=== PATIENT | male | born 1950 | race Caucasian/White ===

== ENCOUNTER → 2019-10-04 09:41 | Outpatient (CLI) | payer BC, SELFPAY ==
--- NOTE | ~2019-10-04 | XR_ITS ---
EXAMINATION: XR foot LT min 3V DATE: 10/04/2019 10:49 INDICATION: Left dorsal foot pain TECHNIQUE: Dorsoplantar, lateral, and 2 oblique views of the left foot were obtained. COMPARISON: None. FINDINGS: There is no fracture, dislocation, or subluxation. Bone alignment is normal. There is mild osteoarthritis at the first metatarsophalangeal joint as well as in several interphalangeal joints. T he soft tissues are unremarkable. A plantar calcaneal enthesophyte is noted. IMPRESSION: 1. No acute osseous abnormality. Reviewed, dictated and finalized at location A. ENGINEER
== END ==
PROVIDERS: PCP Family Medicine; Visit Provider Family Medicine
DX: M79.672 Pain in left foot (principal)
CPT/HCPCS: 73630

== ENCOUNTER → 2020-06-21 12:43 | Outpatient (CLI) | payer BC, SELFPAY ==
--- NOTE | ~2020-06-21 | CT_ITS ---
EXAMINATION: CT brain wo con EXAM DATE: 06/21/2020 12:59 INDICATION: Headaches.. Cataracts. TECHNIQUE: Spiral CT of the head was performed without contrast. Axial, coronal and sagittal images were reviewed. The dose-length product (DLP) for this examination was 599.57 mGy-cm. The exposure w as tailored according to patient size, and iterative reconstruction (ASIR) was used as additional dos e reduction technique. There is no prior study for comparison. FINDINGS: Mild cerebral atrophy. There is no acute intraparenchymal hemorrhage. No evidence of intra parenchymal brain mass lesion. No evidence of acute infarction. There is no mass effect or midline shift. The ventricles are normal in size. There are no extra-axial collections. There are no acute calvarial fractures. The orbits are unremarkable. Soft tissue is unremarkable. The visualized sinu ses and mastoid air cells are well aerated. IMPRESSION: 1. No acute intracranial findings. 2. Mild atrophy. Reviewed, dictated and finalized at location A. TYPIST
== END ==
PROVIDERS: PCP Family Medicine; Visit Provider Family Medicine
DX: R51.9 Headache, unspecified (principal)
CPT/HCPCS: 70450

== ENCOUNTER 2021-02-28 15:39 | Outpatient (CLI) | payer OTHER, BC, SELFPAY ==
--- NOTE | ~2021-02-28 | MR_ITS ---
EXAMINATION: MR shoulder LT wo con DATE: 02/28/2021 16:34 INDICATION: Chronic left shoulder pain. TECHNIQUE: Magnetic resonance imaging (MRI) of the left shoulder was performed without intravenous co ntrast. Sequences included axial PD-weighted FS FSE, coronal oblique PD-weighted FS FSE, coronal obli que T2-weighted FS FSE, sagittal PD-weighted FS FSE, and sagittal T1-weighted SE. COMPARISON: None. FINDINGS: Coracoacromial arch: The acromion undersurface is curved in morphology (type II) small lateral subacromial spur. The corac oacromial ligament is normal. Mild acromioclavicular osteoarthritis. Rotator cuff: Moderate supraspinatus and mild infraspinatus tendinopathy. There is a partial-thickness articular si ded tear extending 2 cm AP along the superior and anterior aspect of the middle facet footplates of t he supraspinatus and anterior infraspinatus tendon. The tear appears to vary in thickness from betwee n one third and two thirds of the tendon thickness. The teres minor tendon is normal. There is a part ial thickness articular sided tear of the subscapularis tendon which spares the bursal side of the te ndon which remains contiguous with the intact transverse humeral ligament. The tear involves at least the medial two thirds of the cephalad third of the lesser tuberosity footplate and the full width of the middle third of the footplate. The caudal third remains intact. There appear to be some ligament fibers remaining attached to the superolateral aspect of the lesser tuberosity footplate however the y appear more relaxed in the bursal sided fibers and may also be torn. No asymmetric rotator cuff mus agnes atrophy. There is mild feathery muscular edema along the myotendinous junction of the supraspinat us and more prominent the infraspinatus tendons which could be related to acute strain or intramuscul ar imbibition of fluid arising at the rotator cuff tear. Biceps tendon, glenoid labrum and glenohumeral cartilage: Full-thickness tear of the long head biceps tendon which likely occurred in the region of the junctio n of the intra-articular and extra-articular portion of the tendon. The intra-articular portion of th e tendon remains attached to its glenoid anchor and is reflected posteriorly extending approximately 2.5 cm posteriorly along the peripheral margin of the posterior superior glenoid labrum. The attenuat ed distal tear margin is retracted below level of the intertubercular groove. Normal anterosuperior s ublabral foramen. There is a tear of the anteroinferior labrum beginning anteriorly at the 3:00 posit ion and extending to the 5:00 position posterior inferiorly. Small region of deep chondral ulceration along the inferior margin of the glenoid. Less severe partial thickness cartilage loss is seen at th e apex and inferomedial margins of the humeral head. No degenerative subchondral changes. Fluid: Small glenohumeral joint effusion with proportional extension of fluid into the deep subscapular rece ss and long head biceps tendon sheath. No loose osteochondral bodies. Small amount of fluid in the walker bacromial/subdeltoid bursa as well as the subcoracoid bursa consistent with mild bursitis. Bones: Normal marrow signal with no edema, fracture or pathologic marrow replacing process. Mild cystic jimenez ge at the greater tuberosity. IMPRESSION: 1. Large partial-thickness articular sided rotator cuff tear involving the distal aspect of the supra spinatus tendon, anterior infraspinatus tendon and extending across rotator cuff interval to involve the cephalad two thirds of the distal subscapularis tendon. 2. Full-thickness along head biceps tendon tear with medial portion of the tendon reflected posterior ly from the still intact glenoid anchor. 3. Mild glenohumeral osteoarthritis with tear of the anteroinferior glenoid labrum. 4. Mild subacromial/subdeltoid and subcoracoid bursitis.
== END 2021-02-28 15:40 | disposition home or self-care (01) ==
PROVIDERS: PCP Family Medicine; Visit Provider Nurse Practitioner Family
DX: M19.012 Primary osteoarthritis, left shoulder (principal); M75.52 Bursitis of left shoulder
CPT/HCPCS: 73221

== ENCOUNTER → 2021-05-16 03:24 | Outpatient (CLI) | payer BC, SELFPAY ==
[2021-05-16 18:04] LABS: SARS-CoV-2 RNA PCR Negative
== END ==
PROVIDERS: PCP Family Medicine; Visit Provider Family Medicine
DX: Z20.822 Contact with and (suspected) exposure to COVID-19 (principal); R05.9 Cough, unspecified
CPT/HCPCS: C9803; U0003; U0005

== ENCOUNTER 2021-05-30 00:16 | Day surgery (SDC) | payer OTHER, SELFPAY ==
[2021-05-28 14:44] VITALS: BMI 25.7
[2021-05-30] VITALS (9 sets, daily range): BP systolic 107–154; BP diastolic 56–76; PULSE 63–72; RESP 12–16; TEMP 36.2–36.6; O2SAT 95–100
--- NOTE | 2021-05-30 07:25 | WPDHPUPDATE1 ---
History and Physical Update Update Date/Time: 05/30/21 07:25 History and Physical has been reviewed, including an updated exam of the patient. There are NO changes in the patient's condition. Risks, benefits, and alternatives have been discussed and questions answered. Patient agrees to proceed with procedure.
[2021-05-30] MEDS: ACETAMINOPHEN 500 MG TABLET 1000 MG PO (09:54)
[2021-05-30] MEDS: CELECOXIB 200 MG CAPSULE PO (09:54)
--- NOTE | 2021-05-30 09:55 | WPDANESEPPF ---
Anes - Initial Pre Proc Eval Procedure: Operation Date: 05/30/21 10:30 Proposed Procedures p Left Shoulder Arthroscopy, Open Rotator Cuff Repair, Subscapularis Repair, Possible Proximal Biceps Tendon Repair - Osmany Logan MD Date/Time: 05/30/21 09:55 Surgeon: Osmany Logan MD Pre Op Diagnosis: left rotator cuff tear, left biceps tendon tear Patient Data Age: 71 Gender: M Height: 1.7 m Weight: 73.9 kg Last Vital Signs Temp 97.1 F L 05/30/21 09:42 Pulse 69 05/30/21 09:42 Resp 14 05/30/21 09:42 BP 154/76 H 05/30/21 09:42 Pulse Ox 100 05/30/21 09:42 Allergies Allergy/AdvReac Type Severity Reaction Status Date / Time No Known Allergies Allergy Verified 05/30/21 09:42 Home Medications Medication Instructions Recorded Confirmed Type histamine dihydrochloride 0.025 % 0.25 % TOPICAL PRN PRN gm 09/30/19 05/30/21 History topical cream curnavcj-sfuhvcgf-apegr acid 400 1 tablet PO DAILY 05/24/20 05/30/21 History mcg-vit K 20 mcg-lycop 300 mcg tablet amitriptyline 100 mg tablet 100 mg PO HS tablet 04/18/21 05/30/21 History amlodipine 5 mg tablet 5 mg PO DAILY #90 tablet 04/18/21 05/30/21 Rx atorvastatin 20 mg tablet 20 mg PO QHS #90 tablet 05/14/21 05/30/21 Rx finasteride 5 mg PO HS 05/28/21 05/30/21 History fluticasone propionate [Flonase 2 spray NASAL PRN PRN 05/28/21 05/30/21 History Allergy Relief] naproxen sodium [Aleve] 220 mg PO Q12H PRN 05/28/21 05/30/21 History Patient hx anesthesia problems: none Family hx anesthesia problems: none Results Review: All pre-operative results and documents have been reviewed as part of the pre-operative evaluation. FOR[facility]LY [facility] Past Medical History Medical History Arthritis Bilateral shoulder pain BPH w/o urinary obs/LUTS DJD of both shoulders Dyslipidemia Elevated PSA Essential (primary) hypertension Insomnia RUBIN (obstructive sleep apnea) Rotator cuff tear Seasonal allergies Vision changes Surgical History Surgical History History of arthroscopy of right knee 02/2012 - meniscus repair History of bilateral carpal tunnel release 2010 History of left inguinal hernia repair 1970s No pertinent past surgical history S/P cubital tunnel release 2010 Family History Family History Other Cerebrovascular accident Family history of arthritis Family history of malignant neoplasm Social History Social History Smoking status: Never smoker Second hand tobacco smoke exposure: No Additional smoking assessment comments: no smoke exposure as a child Alcohol intake: never Substance use: never Substance use type: does not use Gender identity (if verbalized by the patient): Male Spiritual care concerns: No Anes - Eval Final PreProcedure Day of Procedure 05/30/21 09:55 Patient weight: normal Heart: regular rate and rhythm Lungs: clear to auscultation Airway: Mallampati scale class III Neurological: alert and oriented Last oral intake: >/= 8 hours ASA classification: III Emergent: no Anesthetic plan: proceed Anesthesia type and monitoring: general ETT and standard monitoring Results Review: All pre-operative results and documents have been reviewed as part of the pre-operative evaluation. Informed Consent: The patient's anesthetic plan and its attendant risks and benefits were discussed with the patient/family/POA. Questions were solicited and answers provided to the satisfaction of the patient/family/POA.
[2021-05-30] MEDS: LACTATED RINGERS 1,000 ML 30 ML IV CONT ×2 (10:04→13:25)
--- NOTE | 2021-05-30 10:17 | WPDANESPNB ---
Anes - Peripheral Nerve Block Date/Time: 05/30/21 10:17 I have discussed with the patient/family/POA the placement of a peripheral nerve block for post-operative pain management, including associated risks, benefits, complications, and side effects. Alternative methods of post-operative analgesia were detailed. Questions were solicited and answers provided to the satisfaction of the patient/family/POA. Time-Out: A pre-procedural Time-Out was completed immediately before starting the procedure and confirmed: Patient Identification, Site, Procedure, Patient Position and the Availability of Requisite Equipment. Clinical Indications: Acute post-operative pain management requested by the operative surgeon. Nerve Block Insertion Note Anes-nerve block: interscalene left Patient position: supine Needle: 22 gauge, stimulating, insulated echogenic needle. Needle length: 50 mm Technique: ultrasound Injectate: bupivacaine 0.5% with epi 5 mcg/ml (30cc no epi) and dexamethasone (mg) (8mg) Observations: tolerated well Complications: none Procedure start time:: 1008 Procedure end time:: 1013
[2021-05-30] MEDS: ceFAZolin 2 GM/D5W 50 ML 2 GM/50 ML BAG IVPB (10:18)
[2021-05-30] MEDS: ceFAZolin SODIUM 1 GM VIAL IV PUSH (12:39)
--- NOTE | 2021-05-30 13:44 | P.OP_ITS ---
Procedure Note - Detailed Date of Procedure 05/30/21 Pre-op Diagnosis left rotator cuff tear, left biceps tendon tear Post-op Diagnosis same Procedure Performed LEFT SHOULDER SCOPE WITH DEBRIDEMENT OF BICEPS TENDON STUMP, SYNOVECTOMY, AND OPEN ROTATOR CUFF REPAIR Surgeon Osmany Logan MD Anesthesia general Description of Procedure THE PATIENT WAS TAKEN TO THE OR, PLACED UNDER GENERAL ANESTHESIA AND THEN PLACED IN THE BEACH CHAIR POSITION. THE LEFT UPPER EXTREMITY WAS PREPPED AND DRAPED IN THE STERILE FASHION. TROCARS WERE PLACED IN THE USUAL FASHION. THE CAMERA WAS INTRODUCED. THERE WAS GRADE 2 CHONDROMALACIA TO THE GLENOID. THERE WAS NO SLAP TEAR. THERE WAS NO FULL THICKNESS TEAR OR DETACHMENT OF THE BICEPS ANCHOR. THERE WAS A LARGE CALCIFIED STUMP OF THE LONG HEAD OF THE BICEPS TENDON. THIS APPEARED TO BE A CHRONIC TEAR. THERE WAS A LOT OF TISSUE FRAYING AROUND THE LABRUM. AN ANTERIOR TROCAR WAS INTRODUCED FOLLOWED BY A SHAVER. THE LABRUM WAS DEBRIDED TO A SMOOTH BASE. THE BICEPS ANCHOR AT THE 12 O'CLOCK POSITION AND THE ANTERIOR LABRUM WERE INTACT. THERE APPEARED TO BE SOME CHRONIC DEGENERATION AND THINNING TO THE ANTERIOR LABRUM BUT NO TWAN TEAR. THE BICEPS STUMP WAS THEN DEBRIDED AND EXCISED. THE ROTATOR CUFF INSERTION WAS SEEN TO BE DISRUPTED WITH VISIBLE BURSAL TISSUE AND THERE WAS A TEAR AT THE INSERTION SITE. THERE WAS ALSO A SUSPICION OF TEAR TO THE ROTATOR CUFF INTERVAL. DEBRIDEMENT OF THE ANTERIOR SUPERIOR EDGE OF THE GLENOID RIM WAS PREFORMED. SYNOVECTOMY WAS CO EFORMED IN AREAS OF SYNOVITIS. THE INSTRUMENTS WERE REMOVED. NEXT AN INCISION WAS MADE OVER THE ANTERIOR LATERAL ACROMION DOWN TO THE DELTOID FASCIA. A MINI OPEN INCISION WAS MADE THROUGH THE DELTOID EXPOSING THE SUB ACROMIAL SPACE. THERE WAS A NEAR FULL THICKNESS TEAR WITH NO RETRACTION TO THE CUFF EDGE AT THE GREATER TUBEROSITY. 1 ARTHREX 5.5 SUTURE ANCHOR WAS PLACED IN GOOD BONE AND THE CUFF TEAR WAS REPAIRED USING A SHU JORDAN TECHNIQUE. THE REPAIR WAS EXCELLENT. BURSECTOMY WAS PREFORMED. THE SUBSCAPULARIS TENDO WAS NOT TORN AT THE INSERTION SITE. MINIMAL SUB ACROMIAL DECOMPRESSION WAS PREFORMED UNTIL THERE WAS NO IMPINGEMENT ON THE REPAIR OF THE SUPRASPINATUS TENDON. THE ROTATOR CUFF INTERVAL WAS INSPECTED AND THERE WAS FOUND TO BE A TEAR FROM THE GLENOID RIM TO THE MID ROTATOR CUFF TENDON. #2 FIBERWIRE WAS USED TO APPROXIMATE THE INTERVAL EDGES. THE REPAIR WAS EXCELLENT.THE SHOULDER WAS IRRIGATED WITH COPIOUS AMOUNTS OF FLUID. THE DELTOID WAS REPAIRED WITH #2 FIBER WIRE AND 0 VICRYL. THE SUBCUTANEOUS LAYER WAS REPAIRED WITH 2-0 VICRYL AND 3-0 QUIL WAS USED A SUBCUTICULAR STITCH. THEN DERMABOND WAS USED ON THE SKIN EDGES. STERILE DRESSING WAS APPLIED. THE PATIENT WAS EXTUBATED AND SENT TO THE RECOVERY ROOM. Complications No immediate complications Condition stable Disposition PACU
== END 2021-05-30 15:21 | disposition home or self-care (01) ==
PROVIDERS: PCP Family Medicine; Visit Provider Orthopaedic Surgery
PROC: (CPT 29805; principal; 2021-05-30 10:30)
DX: S46.012A Strain of muscle(s) and tendon(s) of the rotator cuff of left shoulder, initial encounter (principal); S46.112A Strain of muscle, fascia and tendon of long head of biceps, left arm, initial encounter; M65.822 Other synovitis and tenosynovitis, left upper arm; G89.18 Other acute postprocedural pain; X58.XXXA Exposure to other specified factors, initial encounter; I10 Essential (primary) hypertension; E78.5 Hyperlipidemia, unspecified; G47.33 Obstructive sleep apnea (adult) (pediatric); N40.0 Benign prostatic hyperplasia without lower urinary tract symptoms
CPT/HCPCS: 23410; 64415; A9270; C1713; J0690; J1100; J1170; J2250; J2370; J2405; J2704; J2710; J3010; J7120

== ENCOUNTER 2021-05-30 08:39 | Outpatient (CLI) | payer OTHER, SELFPAY ==
[2021-05-30 09:16] LABS: EDCOVIDSCREEN Negative (Negative)
== END 2021-05-30 08:40 | disposition home or self-care (01) ==
LOC: ANHSURGERY 08:40
PROVIDERS: PCP Family Medicine; Visit Provider Orthopaedic Surgery
DX: Z01.812 Encounter for preprocedural laboratory examination (principal); Z20.822 Contact with and (suspected) exposure to COVID-19
CPT/HCPCS: 87426; C9803

== ENCOUNTER 2022-01-24 10:53 | Outpatient (CLI) | payer OTHER, SELFPAY ==
--- NOTE | ~2022-01-24 | MR_ITS ---
EXAMINATION: MR shoulder RT wo con DATE: 01/24/2022 11:32 INDICATION: Right shoulder pain. TECHNIQUE: Magnetic resonance imaging (MRI) of the right shoulder was performed without intravenous c ontrast. Sequences included axial PD-weighted FS FSE, coronal oblique PD-weighted FS FSE, coronal obl ique T2-weighted FS FSE, sagittal PD-weighted FS FSE, and sagittal T1-weighted SE. COMPARISON: Right shoulder radiographs dated 12/12/2020 FINDINGS: Coracoacromial arch: The acromion undersurface is flat in morphology (type I). The coracoacromial ligament is normal. Mild acromioclavicular osteoarthritis. Rotator cuff: Mild supraspinatus tendinopathy with small mild intrasubstance tear along the superior facet footplat e measuring approximately 6 mm AP and involving no greater than one third of the tendon thickness. No evident articular or bursal sided component. Minimal mild tendinopathy of the anterior infraspinatus tendon without discrete tear. The teres minor tendon is normal. Mild subscapularis tendinopathy. The re are small hypertrophic osteophytes along a significant portion of the lateral tuberosity footplate of the subscapularis tendon. Partial tear of the subscapularis tendon along the lateral side of the cephalad two thirds of the lesser tuberosity footplate. The bursal side of the tendon remains intact and contiguous with the transverse humeral ligament. The articular side of the tendon also remains in tact. No asymmetric rotator cuff muscle atrophy or abnormal signal. Biceps tendon, glenoid labrum and glenohumeral cartilage: Mild tendinopathy of the long head biceps tendon without discrete tear . Disc centered at the junctio n of the intra-articular and extra articular portion of the tendon which is subluxed across the media l rim of the intertubercular groove and the subscapularis tendon tear defect. Moderate acromioclavicu lar osteoarthritis with full/near full-thickness cartilage loss with cortical irregularity and mild s ubarticular cystlike changes along the caudal third of the glenoid. Additional deep ulceration or ful l-thickness chondral ulceration at the cephalad aspect of the humeral head with small region of mild subarticular edema-like signal change slightly posterior to the vertex. Small marginal osteophytes al lulú the inferomedial humeral head. There is diffuse tearing of the glenoid labrum. Small multilobulat ed para labral cyst arising at the 6:30 position of the inferior glenoid labrum. Fluid: Physiologic amount of fluid in the glenohumeral joint and biceps tendon sheath. 1.6 x 0.9 cm low sig nal intensity loose body at the deep subscapular recess. No abnormally increased fluid signal in the subacromial/subdeltoid bursa to suggest bursitis. Bones: Bone alignment is normal. No fracture or pathologic marrow replacing process. Mild cystic change at b oth the lesser and greater tuberosity. IMPRESSION: 1. Mild supraspinatus and subscapularis tendinopathy, both with small partial-thickness intrasubstanc e tears. 2. Moderate right glenohumeral osteoarthritis with diffuse labral degeneration and regions of severe chondromalacia at the cephalad humeral head and inferior glenoid. 3. Mild tendinopathy without discrete tear at the junction of the intra-articular and extra articular portion of the long head biceps tendon which is subluxed across the cephalad aspect of the medial ri m of the intertubercular groove and across the subscapularis tendon tear defect at the lateral aspect of the lesser tuberosity. Reviewed, dictated and finalized at location A. IMPRESSION: 1. Mild supraspinatus and subscapularis tendinopathy, both with small partial-t hickness intrasubstance tears. 2. Moderate right glenohumeral osteoarthritis with diffuse labral degene
== END 2022-01-24 10:54 | disposition home or self-care (01) ==
PROVIDERS: PCP Family Medicine; Visit Provider Orthopaedic Surgery
DX: M25.511 Pain in right shoulder (principal); M75.81 Other shoulder lesions, right shoulder; M19.011 Primary osteoarthritis, right shoulder; M94.211 Chondromalacia, right shoulder
CPT/HCPCS: 73221

== ENCOUNTER 2022-05-15 12:17 | Outpatient (CLI) | payer OTHER, BC, SELFPAY ==
--- NOTE | ~2022-05-15 | MR_ITS ---
EXAMINATION: MR shoulder RT wo con DATE: 05/15/2022 13:17 INDICATION: Worsening right shoulder pain TECHNIQUE: Magnetic resonance imaging (MRI) of the right shoulder was performed without intravenous c ontrast. Sequences included axial PD-weighted FS FSE, coronal oblique PD-weighted FS FSE, coronal obl ique T2-weighted FS FSE, sagittal PD-weighted FS FSE, and sagittal T1-weighted SE. COMPARISON: Right shoulder radiographs dated 02/04/2022 FINDINGS: Coracoacromial arch: The acromion undersurface is flat in morphology (type I). The coracoacromial ligament is normal. Mild acromioclavicular osteoarthritis. Rotator cuff: Mild supraspinatus tendinopathy with moderate severity partial-thickness articular sided tear which e xtends 1.3 cm AP along the superior facet footplate and which at its most severe involvement is up to two thirds of the tendon thickness. Mild subscapularis tendinopathy with partial tear involving the cephalad two thirds of the lesser tuberosity footplate. The caudal third of the tendon as well as the bursal side of the more cephalad aspect of the tendon remain intact, the latter contiguous with the intact transverse humeral ligament. The stairs likely chronic with hypertrophic bone formation along the cephalad lesser tuberosity footplate at the site of the tear. The teres minor tendon is normal. N ormal rotator cuff muscle bulk and signal. Biceps tendon, glenoid labrum and glenohumeral cartilage: Moderate tendinopathy of the long head biceps tendon which is thickened with mild increased signal at the junction of the intra and extra articular portion of the tendon where it is subluxed across the medial rim of the intertubercular groove and across the subscapularis lesser tuberosity tear defect. Moderate glenohumeral osteoarthritis with full/near full-thickness cartilage loss along the anterior and inferior glenoid with a few small foci of subarticular edema-like signal change. There is diffuse circumferential tearing of the glenoid labrum with tiny para labral cyst at the 6:00 position of the glenoid and tiny intraosseous ganglion cyst along the anteroinferior rim of the glenoid. There is ad ditional deep chondral ulceration along the cephalad aspect of the humeral head with additional mild subarticular edema-like signal change. Small marginal osteophytes along the anteroinferior rim of the humeral head. Fluid: Physiologic amount of fluid in the glenohumeral joint and biceps tendon sheath. 1.8 x 1.1 x 0.8 cm l ow signal intensity loose osteochondral body at the deep subscapular recess. No abnormal increased fl uid signal in the subacromial/subdeltoid bursa to suggest bursitis. Bones: Normal marrow signal with no edema, fracture or pathologic marrow replacing process. Mild hypertrophi c and cystic change along the greater and lesser tuberosities. IMPRESSION: 1. Moderate glenohumeral osteoarthritis with high-grade chondral malacia the humeral head and glenoid . 2. Circumferential tearing of the glenoid labrum. 3. Mild supraspinatus and subscapularis tendinopathy with partial-thickness articular sided tear nelly g the superior facet footplate of the former and partial thickness tear along the cephalad lesser tub erosity footplate of the latter. 4. Moderate tendinopathy of the long head biceps tendon which is subluxed across the subscapularis te ar defect at the cephalad aspect of the lesser tuberosity. 5. Mild acromioclavicular osteoarthritis. Reviewed, dictated and finalized at location A. IMPRESSION: 1. Moderate glenohumeral osteoarthritis with high-grade chondral malacia the hu meral head and glenoid. 2. Circumferential tearing of the glenoid labrum. 3. Mild supraspinatus and subscapularis tendinopathy with partial-thickness a
== END 2022-05-15 12:18 | disposition home or self-care (01) ==
LOC: ANHIMG 12:24
PROVIDERS: PCP Family Medicine; Visit Provider Orthopaedic Surgery
DX: M25.511 Pain in right shoulder (principal); M19.011 Primary osteoarthritis, right shoulder; M94.211 Chondromalacia, right shoulder; S43.431A Superior glenoid labrum lesion of right shoulder, initial encounter; M75.81 Other shoulder lesions, right shoulder
CPT/HCPCS: 73221

== ENCOUNTER 2022-08-13 08:35 | Outpatient (CLI) | payer BC, SELFPAY ==
--- NOTE | ~2022-08-13 | US_ITS ---
Procedure: Duplex Doppler examination of the bilateral carotids. Indication: Dizziness and giddiness, carotid stenosis Technique: Real time, color-flow and pulse wave Doppler examination of the bilateral carotids was performed. Findings: Ornelas scale ultrasonography of the right neck demonstrated minimal plaque at the right carotid bulb. T here was demonstration of normal color-flow and Doppler waveforms within the right common, internal a nd external carotid arteries. The peak systolic velocities in the right common, internal and external carotid arteries were demonstrated to be 145 cm/sec, 124 cm/sec and 144 cm/sec respectively. The rig ht ICA/CCA ratio was 0.9.The proximal right internal carotid artery demonstrates 0% stenosis relative to the normal distal artery lumen diameter. Ornelas scale sonography of the left neck demonstrated no significant plaque. There was demonstration of normal color-flow and wave forms within the left common, internal and external carotid arteries. The peak systolic velocities in the left common, internal and external carotid arteries were demonstrate d to be 125cm/sec, 86 cm/sec and 149 cm/sec respectively. The left ICA/CCA ratio was 0.9. The proxima l left internal carotid artery demonstrates 0% stenosis relative to the normal distal artery lumen di ameter. There was antegrade flow demonstrated in the bilateral vertebral arteries. Impression: No hemodynamically significant stenosis of the bilateral internal carotid arteries. Antegrade flow in the bilateral vertebral arteries. Note: The methodology used is an indirect measurement validated against a direct method (such as the NASCET criteria) that compares diameters at the stenosis to the distal ICA. Reviewed, dictated and finalized at location . 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 Antegrade flow in the bilateral vertebral arteries. Note: The methodology used is an indirect measurement validated against a direct meth od (such as the NASCET criteria) that compares diameters at the stenosis to the distal ICA.
--- NOTE | 2022-08-13 08:40 | EST_ITS ---
Patient Info Name: Tip Deras Age: 72 years : 1950 Gender: Male Ht: 67 in Wt: 165 lbs BSA: 1.89 m2 HR: 66 bpm BP: 147 / 82 mmHg Heart Rhythm: Sinus Rhythm Exam Date: 08/13/2022 9:39 AM Exam Location: [facility] Stress Patient Status: Outpatient Admit Date: 08/13/2022 Staff Ordering Physician: Mignon Savage NP Attending Provider: Mignon Savage NP Exercise Technologist: Ginette Mckenzie CT Exercise Physician: Lalito Villalobos DO Exam Type: CA stress test treadmill Study Info Indications R42 - Dizziness and giddiness A treadmill exercise stress test was performed. Summary 1. 1. Negative Todd exercise stress test for ischemic ST changes by ECG criteria. However, patient achieved only 81% MPHR for age group which reduces sensitivity of the test. 2. 2. Reduced functional capacity, achieving 7 METs of workload. 3. 3. Baseline hypertension. 4. 4. Appropriate HR response to exercise. 5. 5. Appropriate HR recovery at 1 minute post exercise. 6. 6. No imaging with stress testing. 7. 7. Patient informed of the above results. Protocol: Todd Stress ECG Details Stage: REST Duration (min): 1 min : 20 sec Speed (mph): 0.0 Grade (%): 0 HR (bpm): 70 SBP (mmHg): 147 DBP (mmHg): 82 METS: --- Stage: REST Duration (min): 5 min : 53 sec Speed (mph): 0.0 Grade (%): 0 HR (bpm): 75 SBP (mmHg): 147 DBP (mmHg): 82 METS: --- Stage: STAGE 1 Duration (min): 1 min : 0 sec Speed (mph): 1.7 Grade (%): 10 HR (bpm): 94 SBP (mmHg): 147 DBP (mmHg): 82 METS: --- Stage: STAGE 1 Duration (min): 2 min : 0 sec Speed (mph): 1.7 Grade (%): 10 HR (bpm): 104 SBP (mmHg): 147 DBP (mmHg): 82 METS: --- Stage: STAGE 1 Duration (min): 3 min : 0 sec Speed (mph): 1.7 Grade (%): 10 HR (bpm): 110 SBP (mmHg): 176 DBP (mmHg): 72 METS: --- Stage: STAGE 2 Duration (min): 1 min : 0 sec Speed (mph): 2.5 Grade (%): 12 HR (bpm): 114 SBP (mmHg): 176 DBP (mmHg): 72 METS: --- Stage: STAGE 2 Duration (min): 2 min : 0 sec Speed (mph): 2.5 Grade (%): 12 HR (bpm): 119 SBP (mmHg): 182 DBP (mmHg): 74 METS: --- Stage: STAGE 2 Duration (min): 2 min : 59 sec Speed (mph): 2.5 Grade (%): 12 HR (bpm): 121 SBP (mmHg): 182 DBP (mmHg): 74 METS: --- Stage: RECOVERY Duration (min): 1 min : 0 sec Speed (mph): 0.0 Grade (%): 0 HR (bpm): 110 SBP (mmHg): 182 DBP (mmHg): 74 METS: --- Stage: RECOVERY Duration (min): 2 min : 0 sec Speed (mph): 0.0 Grade (%): 0 HR (bpm): 104 SBP (mmHg): 182 DBP (mmHg): 74 METS: --- Stage: RECOVERY Duration (min): 2 min : 56 sec Speed (mph): 0.0 Grade (%): 0 HR (bpm): 95 SBP (mmHg): 198 DBP (mmHg): 73 METS: --- Rest HR: 75 bpm Peak HR: 122 bpm Rest Sys BP: 147 mmHg Peak Sys BP: 198 mmHg Max Pred HR: 149 bpm
== END 2022-08-13 08:36 | disposition home or self-care (01) ==
PROVIDERS: PCP Family Medicine; Visit Provider Nurse Practitioner
DX: R42 Dizziness and giddiness (principal); I10 Essential (primary) hypertension
CPT/HCPCS: 93017; 93880

== ENCOUNTER 2022-08-16 10:55 | Outpatient (CLI) | payer BC, SELFPAY ==
[2022-08-16 19:59] LABS: Basophils Absolute Auto 0.1 K/mm3 (0.0-0.1); Basophils Percent Auto 0.8 % (0.2-1.2); Eosinophils Absolute Auto 0.1 K/mm3 (0-0.3); Eosinophils Percent Auto 1.3 % (0-4.4); Hematocrit 39.9 % (42.0-52.0); Immature Granulocyte Absolute 0.02 K/mm3 (0.00-0.031); Immature Granulocyte Percent A 0.3 % (0-0.5); Lymphocytes Absolute Auto 1.21 K/mm3 (0.9-3.2); Mean Corpuscular HGB Conc 35.1 g/dl (32-36); Mean Corpuscular Hemoglobin 31.5 pg (26-34); Mean Corpuscular Volume 89.9 fl (80-100); Mean Platelet Volume 9.6 fl (7.4-10.4); Monocytes Absolute Auto 0.5 K/mm3 (0.1-0.6); Monocytes Percent Auto 7.5 % (2.6-8.5); Neutrophils Absolute Auto 4.5 K/mm3 (1.3-6.7); Neutrophils Percent Auto 71.1 % (45.5-73.1); Platelet Count Result 258 k/mm3 (150-375); Red Blood Count 4.44 M/mm3 (4.6-6.20); Red Cell Distribution Width 12.1 % (11.5-14.5); White Blood Count 6.4 K/mm3 (4.5-10.0)
[2022-08-16 20:16] LABS: Alanine Aminotransferase 24 U/L (6-50); Albumin Level 4.4 g/dL (3.5-5.1); Alkaline Phosphatase 75 U/L (38-126); Anion Gap 6 mmol/L (8-16); Aspartate Amino Transferase 36 U/L (17-59); Bilirubin,Total 0.5 mg/dL (0.2-1.3); Blood Urea Nitrogen 22 mg/dL (9-20); Calcium 8.8 mg/dL (8.4-10.2); Carbon Dioxide 29 mmol/L (22-30); Chloride 104 mmol/L (98-107); Estimated Glomerular Filt Rate > 60; Glucose 94 mg/dL (65-110); Potassium 4.3 mmol/L (3.4-5.0); Sodium 139 mmol/L (137-145)
[2022-08-16 20:27] LABS: Vitamin D 25 Hydroxy 45.2 ng/mL
== END 2022-08-16 10:56 | disposition home or self-care (01) ==
LOC: ANHGOSHLAB 10:57
PROVIDERS: PCP Family Medicine; Visit Provider Nurse Practitioner
DX: R53.83 Other fatigue (principal); E53.8 Deficiency of other specified B group vitamins; E55.9 Vitamin D deficiency, unspecified; I10 Essential (primary) hypertension
CPT/HCPCS: 36415; 80053; 82306; 82607; 84443; 85025

== ENCOUNTER 2022-08-26 13:41 | Outpatient (CLI) | payer BC, SELFPAY ==
--- NOTE | ~2022-08-26 | CT_ITS ---
EXAMINATION: CT brain wo con DATE: 08/26/2022 14:01 INDICATION: Headache. Dizziness. TECHNIQUE: Computed tomography (CT) of the head was performed without intravenous contrast. The mA wa s adjusted according to patient size. Iterative reconstruction technique was employed. Exam dose: 60 5.33 mGy-cm total exam DLP. COMPARISON: 06/21/2020 CT brain FINDINGS: There is vertebral, basilar and more prominent bilateral carotid siphon internal carotid ar shey calcification. There is nonspecific diminished attenuation of the cerebral white matter, likely due to chronic small vessel ischemic changes. There is an arachnoid cyst in the anterior left temporal fossa. No intracranial mass lesion or hemorr ayz, midline shift or mass effect or cerebrovascular accident is detected. No subdural or epidural h ematoma. There is an opacified posterior ethmoid air cell on each side. The paranasal sinuses and mastoid air cells otherwise are unremarkable. No fracture or bone destruction of the cranial vault. IMPRESSION: Chronic stable arachnoid cyst of the left anterior temporal fossa, stable since 06/21/20 20 Cerebral atherosclerosis and chronic small vessel ischemic changes of the cerebral white matter No acute intracranial finding Reviewed, dictated and finalized at Location A. Reviewed, dictated and finalized at location B. 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
== END 2022-08-26 13:42 | disposition home or self-care (01) ==
PROVIDERS: PCP Family Medicine; Visit Provider Nurse Practitioner
DX: R42 Dizziness and giddiness (principal); G93.0 Cerebral cysts; I67.2 Cerebral atherosclerosis
CPT/HCPCS: 70450

== ENCOUNTER → 2022-11-05 15:03 | Outpatient (CLI) | payer BC, SELFPAY ==
--- NOTE | ~2022-11-05 | MR_ITS ---
MRI of the brain Clinical History: Dizziness Technique: Axial and sagittal T1-weighted images were acquired. These were followed by axial T2-weigh nichol, diffusion weighted, gradient, and FLAIR images. Findings: There is no acute infarct, intracranial hemorrhage, or mass lesion. There are minimal chron ic white matter changes in the periventricular white matter bilaterally. Ventricles and subarachnoid spaces are unremarkable. Orbits are unremarkable. Paranasal sinuses and m astoid air cells are clear. Sagittal midline structures are intact. IMPRESSION: Minimal chronic white matter changes, otherwise unremarkable exam. Reviewed, dictated and finalized at location M.
== END ==
PROVIDERS: PCP Nurse Practitioner; Visit Provider Nurse Practitioner Gerontology
DX: R42 Dizziness and giddiness (principal); R93.0 Abnormal findings on diagnostic imaging of skull and head, not elsewhere classified
CPT/HCPCS: 70551

== ENCOUNTER 2022-12-20 00:37 | Day surgery (SDC) | payer OTHER, SELFPAY ==
[2022-12-12 15:14] VITALS: BMI 25.2
--- NOTE | 2022-12-12 15:53 | PC.NURSE ---
Report to the Outpatient Waiting Room, entrance under the green pavilion located off [facility], at time _6:00AM on date _12/20/22 . Planned Procedure Time: _7:30AM . Time changes happen often and if your time is changed the preop area will call you the afternoon before. - You and your visitor will be asked to self-screen and do not enter if you have any COVID symptoms. - A mask is optional within the hospital at this time. Patients may have clear liquids (water, carbonated beverages, clear teas, apple juice) until 3 hours prior to surgery with a maximum of 20 ounces. - No food from midnight until time of surgery Take the following medications with a SIP of water the morning of surgery: ___AMLODIPINE DO NOT STOP ANY OF YOUR OTHER PRESCRIPTION MEDICATIONS PRIOR TO SURGERY ?EXCEPT THE FOLLOWING Medications to discontinue per physician ___HOLD ALL VITAMINS/SUPPLEMENTS 3 DAYS PRE-OP- LAST DOSE 12/16/22. HOLD ASPIRIN PER DR HALEY_ Please no make-up, nail kinyarwanda, hairspray, perfume, deodorant, or body powder the day of surgery. No jewelry (including any body piercings) or valuables the day of surgery, leave them at home. Please take a shower or bath the night before, or the morning of, surgery with an antibacterial soap. Wear comfortable, loose fitting clothing. Children are encouraged to wear pajamas. - Jewelry must be removed prior to entering the operating room. Rings and piercings that are not removed may be cut off. - The hospital will not accept responsibility for valuables. - Please leave all valuables, including medications, at home the day of surgery. If you are going home after surgery, a licensed front end loader driver must drive you home. - NO public transportation without another adult if you receive anesthesia. - We recommend that an adult stay with you for 24 hours following discharge. - We also recommend that you do not drive, make important decision, drink alcoholic beverages, or take any drugs that were not prescribed by your health care provider for at least 24 hours after your discharge time. Follow any additional instructions given to you from your surgeon. If you or anyone in your household have experienced Covid symptoms in the past week, please notify your surgeon or the nurse liaison at the phone number below for possible testing. Telephone instructions given to ___PATIENT and asked if any additional questions and then verbalized understanding. Patient advised to call surgeon office or pre surgery nurse liaison [phone] if any additional questions.
--- NOTE | 2022-12-19 15:59 | WPDANESEPPF ---
Anes - Initial Pre Proc Eval Procedure: Operation Date: 12/20/22 07:30 Proposed Procedures p Right Open Rotator Cuff Repair - Osmany Logan MD Date/Time: 12/19/22 15:59 Surgeon: Osmany Logan MD Pre Op Diagnosis: right rotator cuff tear Patient Data Age: 72 Gender: M Height: 1.7 m Weight: 73 kg Allergies Allergy/AdvReac Type Severity Reaction Status Date / Time No Known Allergies Allergy Verified 12/12/22 15:21 Home Medications Medication Instructions Recorded Confirmed Type dmuqpsky-shfdguff-labrs acid 400 1 tablet PO DAILY 05/24/20 12/16/22 History mcg-vit K 20 mcg-lycop 300 mcg tablet (One-A-Day Men's Multivitamin) acetaminophen 500 mg tablet 500 mg PO Q6H PRN Pain 08/23/21 12/16/22 History (Tylenol Extra Strength) ergocalciferol (vitamin D2) 1,250 1,250 mcg PO WEEKLY #12 caps 07/15/22 12/16/22 Rx mcg (50,000 unit) capsule atorvastatin 10 mg tablet (Lipitor) 10 mg PO QHS #90 tabs 08/30/22 12/16/22 Rx amitriptyline 50 mg tablet 50 mg PO QHS #30 tabs 11/08/22 12/16/22 Rx aspirin 81 mg capsule 81 mg PO DAILY 11/28/22 12/16/22 History omega-3 300 mg-dha 120 mg-epa 180 1 cap PO DAILY 11/28/22 12/16/22 History mg-fish oil 1,000 mg capsule,del rel amlodipine 10 mg tablet 10 mg PO QAM 12/12/22 12/16/22 History chlorhexidine gluconate 4 % 1 applic topical ONCE #237 mL 12/16/22 Rx topical liquid (Hibiclens) clindamycin phosphate 1 % topical 1 applic topical DAILY #75 mL 12/16/22 Rx gel, once daily (Clindagel) ECG: Sinus rhythm, IRBBB. Other studies: Admit Date: ? ? 08/13/2022 Staff Ordering Physician: ? ? Mignon Savage NP Attending Provider: ? ? Mignon Savage NP Exercise Technologist: ? ? Ginette Mckenzie, DAVID Exercise Physician: ? ? Lalito Villalobos, Exam Type: ? ? CA stress test treadmill Study Info Indications ? ? R42 - Dizziness and giddiness A treadmill exercise stress test was performed. Account #: ? ? [id number] Summary ? 1. 1. Negative Todd exercise stress test for ischemic ST changes by ECG criteria. However, patient achieved only 81% MPHR for age group which reduces sensitivity of the test. ? 2. 2. Reduced functional capacity, achieving 7 METs of workload. ? 3. 3. Baseline hypertension. ? 4. 4. Appropriate HR response to exercise. ? 5. 5. Appropriate HR recovery at 1 minute post exercise. ? 6. 6. No imaging with stress testing. ? 7. 7. Patient informed of the above results. 08/13/22 Carotid duplex: <50% ICA bilateral stenosis. Patient hx anesthesia problems: none Family hx anesthesia problems: none Results Review: All pre-operative results and documents have been reviewed as part of the pre-operative evaluation. [facility] Past Medical History Medical History Arthritis Bilateral shoulder pain BPH w/o urinary obs/LUTS DJD of both shoulders Dyslipidemia Elevated PSA Essential (primary) hypertension Insomnia Rotator cuff tear Seasonal allergies Vision changes Surgical History Surgical History History of arthroscopy of right knee 02/2012 - meniscus repair History of bilateral carpal tunnel release 2010 History of left inguinal hernia repair 1970s History of repair of left rotator cuff (~05/2021) DEBRIDEMENT OF BICEPS TENDON STUMP, SYNOVECTOMY, AND OPEN ROTATOR CUFF REPAIR S/P cubital tunnel release 2010 Family History Family History Other Cerebrovascular accident Family history of arthritis Family history of malignant neoplasm Social History Social History Smoking status: Never smoker Second hand tobacco smoke exposure: No Additional smoking assessment comments: no smoke exposure as a child Alcohol intake: never Substance use: never Substance use type: does not use Lack of
--- NOTE | 2022-12-19 16:01 | WPDANESPNB ---
Anes - Peripheral Nerve Block Date/Time: 12/19/22 16:01 I have discussed with the patient/family/POA the placement of a peripheral nerve block for post-operative pain management, including associated risks, benefits, complications, and side effects. Alternative methods of post-operative analgesia were detailed. Questions were solicited and answers provided to the satisfaction of the patient/family/POA. Time-Out: A pre-procedural Time-Out was completed immediately before starting the procedure and confirmed: Patient Identification, Site, Procedure, Patient Position and the Availability of Requisite Equipment. Clinical Indications: Acute post-operative pain management requested by the operative surgeon. Nerve Block Insertion Note Anes-nerve block: supraclavicular right Patient position: supine Skin prep: chlorhexidine Needle: 22 gauge, stimulating, insulated echogenic needle. Needle length: 80 mm Technique: ultrasound (in plane) Injectate: bupivacaine 0.25% with epi 5 mcg/ml (20cc) Observations: tolerated well Complications: none Procedure start time:: 725 Procedure end time:: 730
[2022-12-20] VITALS (12 sets, daily range): BP systolic 119–136; BP diastolic 59–84; PULSE 56–66; RESP 11–16; TEMP 36.2–36.3; O2SAT 96–99
[2022-12-20] MEDS: LACTATED RINGERS 1,000 ML 30 ML IV CONT ×2 (07:00→09:22)
[2022-12-20] MEDS: ACETAMINOPHEN 500 MG TABLET 1000 MG PO (07:00)
[2022-12-20] MEDS: CELECOXIB 200 MG CAPSULE PO (07:00)
--- NOTE | 2022-12-20 07:15 | WPDHPUPDATE1 ---
History and Physical Update Update Date/Time: 12/20/22 07:15 History and Physical has been reviewed, including an updated exam of the patient. There are NO changes in the patient's condition. Risks, benefits, and alternatives have been discussed and questions answered. Patient agrees to proceed with procedure.
[2022-12-20] MEDS: ceFAZolin 2 GM/D5W 50 ML 2 GM/50 ML BAG IVPB (07:37)
--- NOTE | 2022-12-20 09:08 | W.PM.PROC2 ---
Procedure Note - Detailed Date of Procedure 12/20/22 Pre-op Diagnosis right rotator cuff tear Post-op Diagnosis Same Procedure Performed REPAIR RIGHT ROTATOR CUFF WITH SUBACROMIAL DECOMPRESSION Surgeon Osmany Logan MD Anesthesia General Description of Procedure THE PATIENT WAS TAKEN TO THE OPERATING ROOM AND THEN INTUBATED AND PLACED IN THE BEACH CHAIR POSITION. THE RIGHT UPPER EXTREMITY WAS PREPPED AND DRAPED IN THE NORMAL STERILE FASHION. AN INCISION WAS MADE IN BETWEEN THE SANTIAGO-LATERAL ACROMION AND THE AC JOINT. THE FASCIA WAS IDENTIFIED. NEXT A MINI OPEN INCISION WAS MADE THROUGH THE DELTOID MUSCLE EXPOSING THE SUBACROMIAL SPACE. A LIMITED ACROMIOPLASTY WAS PREFORMED. THE ROTATOR CUFF WAS IDENTIFIED. THERE WAS A FULL THICKNESS TEAR. IT MEASURED APPROXIMATELY 2 CM X 1 CM. THE GREATER TUBEROSITY WAS DEBRIDED TO BLEEDING BONE. 1 ARTHREX 2.6 FIBER TAC SUTURE ANCHOR WITH 6 STRANDS WAS PLACED IN TO GOOD BONE AND HAD VERY GOOD BITES. MATRASS TYPE REPAIRS WERE DONE TO THE ROTATOR CUFF AND THERE WAS GOOD APPROXIMATION TO THE GREATER TUBEROSITY. THE REPAIR WAS EXCELLENT. THERE WAS NO IMPINGEMENT ON THE REPAIR FROM THE ACROMION WITH RANGE OF MOTION. THE WOUND WAS IRRIGATED WITH COPIOUS AMOUNTS OF ANTIBIOTIC SOLUTION. THE DELTOID MUSCLE WAS REPAIRED WITH #2 ETHIBOND AND 0 VICRYL SUTURE. THE SUBCUTANEOUS LAYER WAS APPROXIMATED WITH 2-0 VICRYL. THE SKIN WAS APPROXIMATED WITH 3-0 QUIL AND DERMABOND. STERILE DRESSING WAS APPLIED. PATIENT WAS EXTUBATED. Estimated Blood Loss 20 Complications No immediate complications Condition Stable Disposition PACU
[2022-12-20] MEDS: fentaNYL CITRATE INJ (*CRX) 100 MCG/2 ML VIAL 25 MCG IV PUSH ×8 (09:53→10:32)
[2022-12-20] MEDS: oxyCODONE HCL (*CRX) 5 MG TAB IR PO (11:07)
== END 2022-12-20 11:50 | disposition home or self-care (01) ==
PROVIDERS: PCP Family Medicine; Visit Provider Orthopaedic Surgery
PROC: (CPT 23420; principal; 2022-12-20 07:30)
DX: S46.011A Strain of muscle(s) and tendon(s) of the rotator cuff of right shoulder, initial encounter (principal); X50.0XXA Overexertion from strenuous movement or load, initial encounter; G89.18 Other acute postprocedural pain; E78.5 Hyperlipidemia, unspecified; I10 Essential (primary) hypertension; M19.012 Primary osteoarthritis, left shoulder; M19.011 Primary osteoarthritis, right shoulder; Z79.82 Long term (current) use of aspirin
CPT/HCPCS: 23410; 64415; A9270; C1713; J0690; J1100; J2405; J2704; J3010; J7120

== ENCOUNTER 2023-08-27 10:52 | Outpatient (CLI) | payer BC, SELFPAY ==
[2023-08-27 13:44] LABS: Influenza A QL RT-PCR Negative (Negative); Influenza B QL RT-PCR Negative (Negative); RSV RNA, RT-PCR Negative (Negative); SARS-CoV-2 RNA PCR Negative (Negative)
== END 2023-08-27 10:53 | disposition home or self-care (01) ==
LOC: ANHGOSHLAB 10:53
PROVIDERS: PCP Family Medicine; Visit Provider Family Medicine
DX: J06.9 Acute upper respiratory infection, unspecified (principal); Z20.822 Contact with and (suspected) exposure to COVID-19
CPT/HCPCS: 87637

== ENCOUNTER 2024-04-15 08:07 | Outpatient (CLI) | payer BC, SELFPAY ==
[2024-04-15 13:56] LABS: Basophils Percent Auto 0.7 % (0.2-1.2); Eosinophils Absolute Auto 0.1 K/mm3 (0-0.3); Eosinophils Percent Auto 1.7 % (0-4.4); Hematocrit 38.7 % (42.0-52.0); Hemoglobin 12.6 g/dL (14.0-18.0); Immature Granulocyte Absolute 0.02 K/mm3 (0.00-0.031); Immature Granulocyte Percent A 0.3 % (0-0.5); Lymphocytes Percent Auto 18.5 % (18.3-44.2); Mean Corpuscular HGB Conc 32.6 g/dl (32-36); Mean Corpuscular Hemoglobin 31.7 pg (26-34); Mean Corpuscular Volume 97.2 fl (80-100); Mean Platelet Volume 9.8 fl (7.4-10.4); Monocytes Absolute Auto 0.5 K/mm3 (0.1-0.6); Monocytes Percent Auto 7.6 % (2.6-8.5); Neutrophils Absolute Auto 4.2 K/mm3 (1.3-6.7); Neutrophils Percent Auto 71.2 % (45.5-73.1); Platelet Count Result 233 k/mm3 (150-375); Red Blood Count 3.98 M/mm3 (4.6-6.20); Red Cell Distribution Width 11.9 % (11.5-14.5)
[2024-04-15 14:40] LABS: Alanine Aminotransferase 38 U/L (6-50); Albumin Level 4.2 g/dL (3.5-5.1); Alkaline Phosphatase 58 U/L (38-126); Anion Gap 8 mmol/L (4-12); Aspartate Amino Transferase 57 U/L (17-59); Bilirubin,Total 0.3 mg/dL (0.2-1.3); Blood Urea Nitrogen 37 mg/dL (9-20); Carbon Dioxide 31 mmol/L (22-30); Chloride 99 mmol/L (98-107); Cholesterol 147 mg/dL (0-200); Estimated Glomerular Filt Rate > 60; Glucose 83 mg/dL (65-110); HDL Direct 59 mg/dL; Potassium 4.8 mmol/L (3.4-5.0); Sodium 138 mmol/L (137-145); Triglycerides 71 mg/dL (<150)
[2024-04-15 14:51] LABS: LDL Cholesterol Direct 64 mg/dL
[2024-04-15 18:40] LABS: Vitamin D 25 Hydroxy 39.7 ng/mL
== END 2024-04-15 08:08 | disposition home or self-care (01) ==
PROVIDERS: PCP Family Medicine; Visit Provider Family Medicine
DX: Z00.00 Encounter for general adult medical examination without abnormal findings (principal); E53.8 Deficiency of other specified B group vitamins; E55.9 Vitamin D deficiency, unspecified; I10 Essential (primary) hypertension; E78.5 Hyperlipidemia, unspecified
CPT/HCPCS: 36415; 80053; 80061; 82306; 82607; 84443; 85025

== ENCOUNTER 2024-05-18 15:32 | Outpatient (CLI) | payer BC, SELFPAY ==
[2024-05-18 19:19] LABS: Prostate Specific Antigen 2.1 ng/mL (< OR = 4.0)
== END 2024-05-18 15:33 | disposition home or self-care (01) ==
LOC: ANHGOSHLAB 15:35
PROVIDERS: PCP Family Medicine
DX: R97.20 Elevated prostate specific antigen [PSA] (principal)
CPT/HCPCS: 36415; 84153

== ENCOUNTER 2024-06-14 08:51 | Outpatient (CLI) | payer BC, SELFPAY ==
--- NOTE | ~2024-06-14 | XR_ITS ---
XR ribs LT 2V w CXR 2V Ordering provider: Jose Ambrose MD History: . left lower anterior rib pain after lifting a pumpkin . Comparison: None. FINDINGS: BONES: Fracture of the left ninth and 10th ribs anteriorly. MEDIASTINUM: The cardiac silhouette is not enlarged. LUNGS: No infiltrates, effusions or pneumothorax. OTHER: No free air under the diaphragm. Left shoulder osteoarthritic changes. IMPRESSION: 1. fracture of the left ninth and 10th ribs. 2. No acute cardiopulmonary findings. Reviewed, dictated and finalized at location A. 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
== END 2024-06-14 08:52 | disposition home or self-care (01) ==
PROVIDERS: PCP Family Medicine; Visit Provider Family Medicine
DX: S22.42XA Multiple fractures of ribs, left side, initial encounter for closed fracture (principal); X50.9XXA Other and unspecified overexertion or strenuous movements or postures, initial encounter; R07.81 Pleurodynia
CPT/HCPCS: 71046; 71100